=== PATIENT | female | born 1955 | race Caucasian/White ===

== ENCOUNTER 2021-11-06 15:09 | Emergency (ER) | payer MEDICAID ==
[~2021-11-06] VITALS: Ht 149.9 cm; Wt 76.2 kg
[2021-11-06 15:47] VITALS: BP 139/60
--- NOTE | 2021-11-06 16:00 | NUR ---
C/O 07/25 HEAD, LEFT WRIST, LEFT HAND PAIN S/P FALL X TODAY.
[2021-11-06] MEDS ORDERED: ONDANSETRON 4 MG ODT PO ONE (16:15)
[2021-11-06] MEDS ORDERED: MORPHINE SULFATE 4 MG/ML SYR IM ONE (16:15)
[2021-11-06] MEDS ORDERED: ACET-8386 PO (17:57)
--- NOTE | 2021-11-06 18:28 | NUR ---
PER [facility] PT RIGHT ARM AND WRIST WAS PLACE IN AN SPLINT AND PMCS WAS ASSESSED BEFORE AND AFTER ALL WNL. [facility] ASSESSED SPLINT AND APPROVED.
--- NOTE | 2021-11-06 18:39 | NUR ---
Patient discharged with v/s stable. Written and verbal after care instructions given and explained. Patient alert, oriented and verbalized understanding of instructions. Ambulatory with steady gait. All questions addressed prior to discharge. ID band removed. Patient advised to follow up with PMD. Rx of HYDROCODONE/ACETAMINOPHEN given. Patient educated on indication of medication including possible reaction and side effects. Opportunity to ask questions provided and answered.
== END 2021-11-06 18:39 | disposition home or self-care (01) ==
LOC: MED 15:09
DX: S52.612A Displaced fracture of left ulna styloid process, initial encounter for closed fracture (principal); W18.39XA Other fall on same level, initial encounter; Y93.89 Activity, other specified; Y92.89 Other specified places as the place of occurrence of the external cause; Y99.8 Other external cause status
CPT/HCPCS: 29125; 73030; 73060; 73090; 73110; 73130; 99284; J2270; Q0162

== ENCOUNTER 2021-12-19 22:31 | Emergency (ER) | payer MEDICAID ==
[~2021-12-19] VITALS: Ht 154.9 cm; Wt 85.3 kg
[~2021-12-19 22:31] MED LIST: ACET-8386 PO
[2021-12-19 22:33] VITALS: BP 141/88
--- NOTE | 2021-12-19 22:42 | NUR ---
Dr. Alejo at [facility] to exam patient.
--- NOTE | 2021-12-19 22:43 | NUR ---
Patient BIB by family from home. C/O spider bite x today. ~ 20 minutes ago Hx : NONE A/O,X4, left neck pain, redness, no SOB, Oxygen sat 98-99 % RA.
[2021-12-19] MEDS ORDERED: IBUPROFEN 800 MG TAB PO ONE (23:05)
[2021-12-19] MEDS ORDERED: AMOXICILLIN 500 MG CAP PO ONE (23:05)
[2021-12-19] MEDS ORDERED: CEPH-588 PO (23:08)
[2021-12-19 23:34] VITALS: BP 141/88
[2021-12-20] MEDS ORDERED: HYDROcodone/APAP 7.5/325 MG 1 TAB PO ONE
== END 2021-12-19 23:34 | disposition home or self-care (01) ==
LOC: MED 22:31
DX: T63.481A Toxic effect of venom of other arthropod, accidental (unintentional), initial encounter (principal); Y92.89 Other specified places as the place of occurrence of the external cause
CPT/HCPCS: 99284; Q0163

== ENCOUNTER 2022-09-30 09:40 | Day surgery (SDC) | payer OTHER ==
[~2022-09-30] VITALS: Ht 132.1 cm; Wt 72.6 kg
[~2022-09-30 09:40] MED LIST changes: -ACET-8386 PO; +ACET-8905 PO; +CEPH-588 PO
[2022-09-30] MEDS ORDERED: fentaNYL citrate 0.05 MG/ML VIAL ONE (11:06)
[2022-09-30] MEDS ORDERED: MIDAZOLAM 5 MG/5 ML VIAL ONE (11:07)
[2022-09-30] MEDS ORDERED: LIDOCAINE 2% 100 MG/5 ML UJET TP ONE (11:07)
[2022-09-30] MEDS ORDERED: MIDAZOLAM 2 MG/2 ML VIAL IVP ONE (13:45)
[2022-09-30] MEDS ORDERED: fentaNYL citrate 0.05 MG/ML VIAL IVP ONE (13:45)
== END 2022-09-30 13:12 | disposition home or self-care (01) ==
LOC: MMU 09:40 → MOR 09:40
PROVIDERS: ATTEND Internal Medicine Gastroenterology
DX: Z12.11 Encounter for screening for malignant neoplasm of colon (principal); K57.30 Diverticulosis of large intestine without perforation or abscess without bleeding; K21.00 Gastro-esophageal reflux disease with esophagitis, without bleeding; I10 Essential (primary) hypertension; I25.2 Old myocardial infarction; K59.00 Constipation, unspecified; Z20.822 Contact with and (suspected) exposure to COVID-19; Z79.82 Long term (current) use of aspirin; Z79.899 Other long term (current) drug therapy
CPT/HCPCS: 36415; 43239; 45378; 86677; 87426; J2250; J3010